=== PATIENT | female | born 1935 ===

== ENCOUNTER 2025-02-08 12:30 | Outpatient (CLI) | payer MEDICARE, SELFPAY ==
--- NOTE | ~2025-02-08 | MR_ITS ---
MRI of the lumbar spine Clinical History: Left sciatica Technique: Axial T2-weighted images, and sagittal T1-weighted, T2-weighted, and T2 fat-sat images wer e acquired. Findings: No acute fracture seen. There is 9 mm anterolisthesis of L4 over L5. There is a 5 mm retrol isthesis of L2 over L3. There is 3 mm retrolisthesis of L1 over L2. No suspicious bone marrow signal abnormality seen. At L1-L2, there is moderate to advanced degenerative disc narrowing. There is minimal disc bulge with mild facet arthropathy. No central canal stenosis. There is moderate bilateral neural foraminal narr owing. At L2-L3, there is severe degenerative disc narrowing. Disc bulge and severe facet arthropathy result in severe spinal canal stenosis/thecal sac compression. There is severe bilateral neural foraminal n arrowing. At L3-L4, there is severe degenerative disc narrowing. Disc bulge and severe facet arthropathy result in severe spinal canal stenosis/thecal sac compression. There is moderate to severe bilateral neural foraminal narrowing. At L4-L5, there is severe degenerative disc narrowing. Disc bulge and severe facet arthropathy result in severe spinal canal stenosis/thecal sac compression. There is advanced bilateral neural foraminal narrowing. At L5-S1, there is minimal disc bulge with moderate facet arthropathy. No central canal stenosis. The re is moderate to advanced bilateral neural foraminal narrowing. Paravertebral soft tissues are unremarkable. Impression: Severe degenerative spondylosis of the lumbar spine, as detailed above. 9 mm anterolisthesis of L4 over L5. 5 mm retrolisthesis of L2 over L3. 3 mm retrolisthesis of L1 over L2. Reviewed, dictated and finalized at [facility]. Impression: Severe degenerative spondylosis of the lumbar spine, as detailed above. 9 mm anterolisthesis of L4 over L5. 5 mm retrolisthesis of L2 over L3. 3 mm retrolisthesis of L1 over L2.
== END 2025-02-08 12:31 | disposition home or self-care (01) ==
LOC: MICIMG 12:37
PROVIDERS: PCP Family Medicine; Visit Provider Physical Medicine & Rehabilitation Pain Medicine
DX: M47.816 Spondylosis without myelopathy or radiculopathy, lumbar region (principal); M43.16 Spondylolisthesis, lumbar region; M54.32 Sciatica, left side
CPT/HCPCS: 72148

== ENCOUNTER 2025-04-19 10:18 | Outpatient (CLI) | payer MEDICARE, SELFPAY ==
--- NOTE | ~2025-04-19 | XR_ITS ---
Right Shoulder Technique: AP and axillary views were obtained. Clinical History: Pain Findings: No fracture or dislocation is seen. Osseous alignment is anatomic. The glenohumeral and acr omioclavicular joints demonstrate moderate degenerative change. Soft tissues are unremarkable. Impression: Moderate degenerative changes, as above. Reviewed, dictated and finalized at location . Impression: Moderate degenerative changes, as above.
--- NOTE | ~2025-04-19 | XR_ITS ---
Left Shoulder Technique: AP and scapular Y views were obtained. Clinical History: Pain Findings: No fracture or dislocation is seen. Osseous alignment is anatomic. The glenohumeral and acr omioclavicular joint demonstrate mild degenerative change. Soft tissues are unremarkable. Impression: Mild degenerative changes, as above. Reviewed, dictated and finalized at [facility]. Impression: Mild degenerative changes, as above.
== END 2025-04-19 10:19 | disposition home or self-care (01) ==
PROVIDERS: PCP Physical Medicine & Rehabilitation Pain Medicine; Visit Provider Physical Medicine & Rehabilitation Pain Medicine
DX: M19.011 Primary osteoarthritis, right shoulder (principal); M19.012 Primary osteoarthritis, left shoulder
CPT/HCPCS: 73030